=== PATIENT | female | born 2000 | race Two or more races ===

== ENCOUNTER 2021-09-30 11:13 | Emergency (ER) | payer OTHER ==
[2021-09-30 11:38] LABS: BASOPHILS % (AUTO) 0.5 %; EOSINOPHILS # (AUTO) 0.1 10^3/uL (0.0-0.7); EOSINOPHILS % (AUTO) 0.9 %; HCT - HEMATOCRIT 42.1 % (37.0-47.0); HGB - HEMOGLOBIN 13.4 g/dL (12.0-16.0); LYMPHOCYTES # (AUTO) 1.3 10^3/uL (1.5-3.5); LYMPHOCYTES % (AUTO) 20.5 %; MEAN CORPUSCULAR HEMOGLOBIN 27.9 pg (27.0-31.0); MEAN CORPUSCULAR HGB CONC 31.8 g/dL (32.0-36.0); MEAN CORPUSCULAR VOLUME 87.5 fL (81.0-99.0); MEAN PLATELET VOLUME 9.7 fL (7.9-10.8); MONOCYTES # (AUTO) 0.4 10^3/uL (0.0-1.0); MONOCYTES % (AUTO) 6.8 %; NEUTROPHILS # (AUTO) 4.5 10^3/uL (1.5-6.6); PLT - PLATELET COUNT 247 10^3/uL (130-450); RED BLOOD COUNT 4.81 10^6/uL (4.20-5.40); RED CELL DISTRIBUTION WIDTH 13.1 % (12.0-15.0); WHITE BLOOD COUNT 6.4 x10^3/uL (4.8-10.8)
[2021-09-30 11:53] LABS: ALBUMIN 4.1 g/dL (3.2-5.5); ALBUMIN/GLOBULIN RATIO 1.1 (1.0-2.2); BILIRUBIN,TOTAL 0.7 mg/dL (0.2-1.0); CALCIUM 9.1 mg/dL (8.5-10.3); CREATININE 0.8 mg/dL (0.4-1.0); POTASSIUM 3.8 mmol/L (3.5-5.0); TOTAL PROTEIN 7.7 g/dL (6.7-8.2)
[2021-09-30 13:53] LABS: BILIRUBIN,URINE NEGATIVE (NEGATIVE); GLUCOSE, URINE (UA) NEGATIVE (NEGATIVE); KETONES,URINE (UA) NEGATIVE (NEGATIVE); LEUKOCYTE ESTERASE, URINE NEGATIVE (NEGATIVE); NITRITE,URINE NEGATIVE (NEGATIVE); OCCULT BLOOD,URINE MODERATE (NEGATIVE); PH,URINE 5.5 PH (5.0-7.5); PROTEIN,URINE NEGATIVE (NEGATIVE); UROBILINOGEN,URINE 0.2 (NORMAL) E.U./dL (NORMAL)
[2021-09-30 13:58] LABS: CLARITY,URINE HAZY (CLEAR); HCG UR QUAL NEGATIVE
[2021-09-30 14:14] VITALS: BP 127/77
[2021-09-30 14:15] LABS: BACTERIA,URINE Few /HPF (None Seen); RBC,URINE 0-5 /HPF (0-5); SQUAMOUS EPITHELIAL CELL,UR MANY Squamous (<= Few); WBC,URINE 0-3 /HPF (0-5)
--- NOTE | 2021-09-30 14:44 | ED Physician Documentation ---
History of Present Illness - Stated complaint Stated Complaint: FEMALE - Chief complaint Chief Complaint: Abd Pain - Additonal information Additional information: 21-year-old female presents emergency department for evaluation of heavy men strual flow. Reports that her menstrual cycle began about 36 hours ago. She reports her periods typically last for about 1 week and are very heavy the first 2 days before gently receiving. She found that this flow was particularly heavy. She woke up this morning and had blood through her tampon and pad which is unusual. She does have cramping but states that it is getting better. She has never had evaluation through OB for her dysmenorrhagia. Denies chest pain or shortness of air. No syncope. No fevers dysuria urgency or frequency. Review of Systems Constitutional: reports: Reviewed and negative Eyes: reports: Reviewed and negative Ears: reports: Reviewed and negative Throat: reports: Reviewed and negative Cardiac: reports: Reviewed and negative GI: reports: Abdominal Pain. denies: Vomiting : reports: Vaginal bleeding Skin: reports: Reviewed and negative Musculoskeletal: reports: Reviewed and negative PD PAST MEDICAL HISTORY - Past Medical History Past Medical History: No - Present Medications Home Medications: Ambulatory Orders Medication Instructions Recorded Confirmed No Known Home Medications 09/30/21 09/30/21 - Allergies Allergies/Adverse Reactions: Allergies Allergy/AdvReac Type Severity Reaction Status Date / Time No Known Drug Allergies Allergy Verified 09/30/21 11:21 - Social History Does the pt smoke?: No Smoking Status: Never smoker PD ED PE NORMAL - General General: Alert and oriented X 3, No acute distress - HEENT HEENT: PERRL - Neck Neck: Supple, no meningeal sign - Cardiac Cardiac: RRR, No murmur - Respiratory Respiratory: Clear bilaterally - Abdomen Abdomen: Normal bowel sounds, Soft, Non tender, Non distended - Rectal Rectal: Deferred - Back Back: No CVA TTP, No spinal TTP - Derm Derm: Normal color Results - Vitals Vitals: Vital Signs - 24 hr 09/30/21 09/30/21 11:18 14:12 Temperature 36.4 C L 36.6 C Heart Rate 97 78 Respiratory 16 16 Rate Blood Pressure 134/87 H 127/77 O2 Saturation 99 100 Oxygen O2 Source Room air - Labs Labs: Laboratory Tests 09/30/21 09/30/21 09/30/21 11:32 11:32 13:30 WBC 6.4 RBC 4.81 Hgb 13.4 Hct 42.1 MCV 87.5 MCH 27.9 MCHC 31.8 L RDW 13.1 Plt Count 247 MPV 9.7 Neut # (Auto) 4.5 Lymph # (Auto) 1.3 L Harrison # (Auto) 0.4 Eos # (Auto) 0.1 Baso # (Auto) 0.0 Absolute Nucleated RBC 0.00 Nucleated RBC % 0.0 Sodium 139 Potassium 3.8 Chloride 106 Carbon Dioxide 25 Anion Gap 8.0 BUN 9 Creatinine 0.8 Estimated GFR (MDRD) 91 Glucose 79 Calcium 9.1 Total Bilirubin 0.7 AST 15 ALT 14 Alkaline Phosphatase 65 Total Protein 7.7 Albumin 4.1 Globulin 3.6 Albumin/Globulin Ratio 1.1 Lipase 37 Urine Color LIGHT YELLOW Urine Clarity HAZY Urine pH 5.5 Ur Specific [place] 1.015 Urine Protein NEGATIVE Urine Glucose (UA) NEGATIVE Urine Ketones NEGATIVE Urine Occult Blood MODERATE H Urine Nitrite NEGATIVE Urine Bilirubin NEGATIVE Urine Urobilinogen 0.2 (NORMAL) Ur Leukocyte Esterase NEGATIVE Urine RBC 0-5 Urine WBC 0-3 Ur Squamous Epith Cells MANY Squamous H Urine Bacteria Few Ur Microscopic Review INDICATED Urine Culture Comments NOT INDICATED Urine HCG, Qual NEGATIVE PD MEDICAL DECISION MAKING - ED course Complexity details: reviewed results, d/w patient ED course: 21-year-old female presents emergency department for evaluation of heavy menstrual flow. She does self report to the provider that her Corman asked her to come to the ER. However since her period started 36 hours ago the flow has begun to lessen. She has had no fevers. No abdominal pain was elicited. Screening labs today do not show any acute worrisome abnormalities and certainly no anemia seen. I did offer the patient the option of a pelvic ultrasound to evaluate for causes of heavy flow such as fibroids but she declined that at this time. She reports that she will follow up with [facility] for further evaluation. Emergent return precautions were discussed for failure of bleeding to improve, any fainting episodes chest pain or shortness of air. Departure - Departure Disposition: 01 Home, Self Care Clinical Impression: Menorrhagia Qualifiers: Menorrhagia type: with regular cycle Qualified Code(s): N92.0 - Excessive and frequent menstruation with regular cycle Condition: Stable Record reviewed to determine appropriate education?: Yes Instructions: ED Bleeding Menstrual Heavy Comments: You were seen in the emergency department today for concerns of heavy menstrual flow. As we discussed at the bedside your screening labs are essentially normal. Your vital signs are normal. You were offered the option of a pelvic ultrasound to evaluate for causes of heavy menstrual flow such as uterine fibroids but you have declined that at this time. I do recommend very close follow-up with [facility]. You may benefit from the initiation of oral contraceptives which can help regulate flow and reduce discomfort with periods. Return to the emergency department if you are developing any fevers, have suddenly severe or different abdominal pain. Your menstrual cycle does not and is you would expect it or you have any fainting episodes.
== END 2021-09-30 14:56 | disposition home or self-care (01) ==
LOC: ED 11:13
DX: N92.0 Excessive and frequent menstruation with regular cycle (principal)
CPT/HCPCS: 36415; 80053; 81001; 81003; 81025; 83690; 85025; 87086; 99281; 99283

== ENCOUNTER 2023-08-12 08:34 | Emergency (ER) | payer OTHER ==
[2023-08-12 09:14] LABS: BILIRUBIN,URINE NEGATIVE (NEGATIVE); GLUCOSE, URINE (UA) NEGATIVE (NEGATIVE); KETONES,URINE (UA) NEGATIVE (NEGATIVE); LEUKOCYTE ESTERASE, URINE NEGATIVE (NEGATIVE); NITRITE,URINE NEGATIVE (NEGATIVE); OCCULT BLOOD,URINE LARGE (NEGATIVE); PH,URINE 5.5 PH (5.0-7.5); PROTEIN,URINE 30 mg/dL (NEGATIVE); UROBILINOGEN,URINE 0.2 (NORMAL) E.U./dL (NORMAL)
[2023-08-12 09:15] LABS: BACTERIA,URINE Few /HPF (None Seen); CLARITY,URINE BLOODY (CLEAR); HCG UR QUAL NEGATIVE; RBC,URINE TNTC /HPF (0-5); SQUAMOUS EPITHELIAL CELL,UR MOD Squamous (<= Few)
[2023-08-12 10:12] LABS: BASOPHILS % (AUTO) 0.3 %; EOSINOPHILS # (AUTO) 0.1 10^3/uL (0.0-0.7); EOSINOPHILS % (AUTO) 0.7 %; HCT - HEMATOCRIT 39.2 % (37.0-47.0); LYMPHOCYTES # (AUTO) 1.5 10^3/uL (1.5-3.5); LYMPHOCYTES % (AUTO) 21.9 %; MEAN CORPUSCULAR HEMOGLOBIN 28.3 pg (27.0-31.0); MEAN CORPUSCULAR HGB CONC 33.2 g/dL (32.0-36.0); MEAN CORPUSCULAR VOLUME 85.2 fL (81.0-99.0); MONOCYTES # (AUTO) 0.5 10^3/uL (0.0-1.0); MONOCYTES % (AUTO) 6.9 %; NEUTROPHILS # (AUTO) 4.7 10^3/uL (1.5-6.6); NEUTROPHILS % (AUTO) 70.1 %; PLT - PLATELET COUNT 242 10^3/uL (130-450); RED CELL DISTRIBUTION WIDTH 12.6 % (12.0-15.0); WHITE BLOOD COUNT 6.7 x10^3/uL (4.8-10.8)
[2023-08-12 10:19] LABS: ALBUMIN 4.3 g/dL (3.2-5.5); ALBUMIN/GLOBULIN RATIO 1.5 (1.0-2.2); BILIRUBIN,TOTAL 0.4 mg/dL (0.2-1.0); CALCIUM 9.2 mg/dL (8.5-10.3); CREATININE 0.8 mg/dL (0.6-1.3); POTASSIUM 3.9 mmol/L (3.5-4.5); TOTAL PROTEIN 7.2 g/dL (6.4-8.9)
[2023-08-12] MEDS ORDERED: ONDANSETRON 4 MG/2 ML VIAL IVP STA (10:27)
[2023-08-12] MEDS ORDERED: HYDROmorphone 1 MG/ML CARPUJECT IVP STA (10:27)
[2023-08-12] MEDS ORDERED: KETOROLAC 15 MG/ML VIAL IVP STA (10:27)
--- NOTE | 2023-08-12 10:28 | ED Physician Documentation ---
PD HPI NVD - Stated complaint Stated Complaint: ,CRAMP PX - Chief complaint Chief Complaint: Abd Pain - History obtained from History obtained from: Patient - Additonal information Additional information: 23-year-old woman presents for very painful menstrual cramps. She started her menses which is at the normal time and the flow is just a bit heavier than usual. That said the pelvic pain is much more than usual. There is no radiation to it. She is she has vomiting and diarrhea as well. She always has diarrhea with her menses, so that is not unusual for her and she thinks the vomiting is from pain. She tried to take Midol but could not keep it down. Denies fevers. She is sexually active. PD PAST MEDICAL HISTORY - Present Medications Home Medications: Ambulatory Orders Medication Instructions Recorded Confirmed No Known Home Medications 09/30/21 08/12/23 - Allergies Allergies/Adverse Reactions: Allergies Allergy/AdvReac Type Severity Reaction Status Date / Time No Known Drug Allergies Allergy Verified 08/12/23 08:46 - Social History Does the pt smoke?: No Smoking Status: Never smoker PD ED PE NORMAL - Vitals Vital signs reviewed: Yes - General General: Alert and oriented X 3, Other (She appears uncomfortable.) - Abdomen Abdomen: Soft, Non tender - Neuro Neuro: Alert and oriented X 3 Results - Vitals Vitals: Vital Signs - 24 hr 08/12/23 08/12/23 08:42 10:47 Temperature 35.4 C L Heart Rate 83 62 Respiratory 18 20 Rate Blood Pressure 136/102 H 127/85 H O2 Saturation 98 96 Oxygen O2 Source Room air - Labs Labs: Laboratory Tests 08/12/23 08/12/23 08/12/23 09:01 10:01 10:01 WBC 6.7 RBC 4.60 Hgb 13.0 Hct 39.2 MCV 85.2 MCH 28.3 MCHC 33.2 RDW 12.6 Plt Count 242 MPV 10.0 Neut # (Auto) 4.7 Lymph # (Auto) 1.5 [place] # (Auto) 0.5 Eos # (Auto) 0.1 Baso # (Auto) 0.0 Absolute Nucleated RBC 0.00 Nucleated RBC % 0.0 Sodium 139 Potassium 3.9 Chloride 109 Carbon Dioxide 25 Anion Gap 5.0 L BUN 10 Creatinine 0.8 Estimated GFR (MDRD) 89 Glucose 104 Calcium 9.2 Total Bilirubin 0.4 AST 16 ALT 12 Alkaline Phosphatase 67 Total Protein 7.2 Albumin 4.3 Globulin 2.9 Albumin/Globulin Ratio 1.5 Lipase 13 Urine Color RED/BLOODY Urine Clarity BLOODY Urine pH 5.5 Ur Specific [place] >=1.030 H Urine Protein 30 H Urine Glucose (UA) NEGATIVE Urine Ketones NEGATIVE Urine Occult Blood LARGE H Urine Nitrite NEGATIVE Urine Bilirubin NEGATIVE Urine Urobilinogen 0.2 (NORMAL) Ur Leukocyte Esterase NEGATIVE Urine RBC TNTC H Urine WBC 6-10 H Ur Squamous Epith Cells MOD Squamous H Urine Bacteria Few Ur Microscopic Review INDICATED Urine Culture Comments NOT INDICATED Urine HCG, Qual NEGATIVE PD Medical Decision Making - ED course ED course: 23-year-old woman with severe pelvic cramps with menstruation. She is not and CBC, CMP are normal. It would be atypical for ovarian cyst/torsion, given the timing and her cycle but will obtain ultrasound. After administration of 1 mg IV Dilaudid, 15 mg IV Toradol, and 4 mg of IV Zofran at 10:55 AM she was reevaluated and feeling much better. Signout to emergency physician at 11 AM to follow-up on ultrasound. Departure - Departure Clinical Impression: Pelvic pain in female Instructions: ED Pelvic Pain [facility] Forms: PCP List
[2023-08-12] MEDS ORDERED: oxyCODONE 5 MG TABLET PO STA (15:06)
--- NOTE | 2023-08-12 15:08 | ED Physician Documentation ---
ED Addendum - Addendum Addendum: 08/12/23 15:06 Patient's ultrasound does show a 2 cm right-sided hydrosalpinx, ovaries are otherwise normal. Patient denies any changes in sexual partners. No vaginal discharge, itching or burning. I discussed the case with Dr. Huitron, gynecology medical practitioners. The patient has no history of PID, gonorrhea or chlamydia. She recommends treating for possible endometritis as this can cause painful menses. The patient is agreeable to this plan. She will follow-up closely with the gynecology clinic. Patient is well-appearing, nontoxic. Afebrile. Patient counseled regarding signs and symptoms for which I believe and urgent re- evaluation would be necessary. Patient with good understanding of and agreement to plan and is comfortable going home at this time This document was made in part using voice recognition software. While efforts are made to proofread this document, sound alike and grammatical errors may occur. Departure - Departure Disposition: 01 Home, Self Care Clinical Impression: Pelvic pain in female, Dysmenorrhea, Endometritis Condition: Good Instructions: ED Cramping Menstrual, ED Endometritis Non Obstetric Follow-Up: Osbaldo Huitron MD [Provider Admit Priv/Credential] - [facility] [Provider Group] Prescriptions: Doxycycline Monohydrate 100 mg PO BID #28 cap metroNIDAZOLE [Flagyl] 500 mg PO BID #28 tablet Oxycodone HCl/Acetaminophen [Percocet 5-325 mg Tablet] 1 - 2 each PO Q6H PRN #14 tablet MDD 6 tabs PRN Reason: pain Comments: Your prescriptions were sent to [facility] in [place]. It is recommended that you follow-up with gynecology for further care, I did speak with Dr. Tomy hooper. She has recommended that we try treating you with doxycycline and Flagyl for possible uterine infection called endometritis. She will follow-up with you in clinic. Please return if you worsen. I am prescribing a short course of narcotic pain medication for you. These are potentially dangerous and addictive medications that should be used carefully. These medications may constipate you. Take an hiso-onx-porwlka stool softener (docusate) twice daily with plenty of water while taking these medications. If you go 24 hours without a bowel movement, take [id number] miralax, per package instructions. Do not drink or drive while taking these medications. If you received narcotic or sedating medications while in the emergency department, do not drive for 24 hours. Store this medication in a safe, secure place and out of reach of children. It is a violation of federal law to give or sell this medication to another person or to use in a manner other than prescribed. The ED will not refill narcotic prescriptions, including prescriptions lost or stolen. To dispose of unwanted medications: 1. [facility] at [address] [facility] in [place] has a medication drop box. They accept prescription medications (in pill form) Sunday through Sunday 9:00 a.m. to 5:00 p.m. 2. The [facility] [employer] accepts prescription medications (in pill form only) for disposal year round. Call for more information. 3. Contact the [facility] for the next [facility] sponsored prescription drug collection event. , [phone], or [phone]; Forms: PCP List
[2023-08-12 15:41] VITALS: BP 132/80; O2SAT 99
[2023-08-12 17:42] LABS: CHLAMYDIA TRACHOMATIS DNA NEGATIVE (NEGATIVE); NEISSERIA GONORRHOEAE DNA NEGATIVE (NEGATIVE)
[2023-08-12 17:45] LABS: TRICHOMONAS VAGINALIS DNA NEGATIVE (NEGATIVE)
--- NOTE | 2023-08-12 23:13 | Ultrasound Report ---
PROCEDURE: Pelvic w/Transvag+Doppler Comp INDICATIONS: Pelvic pain TECHNIQUE: Real-time scanning was performed of the pelvic organs, with image documentation. Additional endovagi nal scanning was necessary due to incomplete visualization of the adnexal and endometrial structures by transabdominal scanning. Doppler interrogation was performed of the ovaries bilaterally. COMPARISON: None. FINDINGS: Uterus: Uterus is anteverted and measures 7.3 x 4.6 x 4.9 cm. Endometrium measures up to 0.7 cm. Ovaries: The right ovary measures 2.6 x 1.8 x 1.6 cm, with a calculated ovarian volume of 3.9 cc. T he left ovary measures 3.1 x 1.8 x 1.5 cm, with a calculated ovarian volume of 4.2 cc. There is paten t arterial and venous flow demonstrated within the ovaries. No adnexal masses. There is a tubular ane choic structure in the right adnexa compatible with a dilated fallopian tube measuring up to 2.0 cm i n diameter. Other: No pathologic free abdominal or pelvic fluid. IMPRESSION: 1. Nonspecific right hydrosalpinx demonstrated. Findings reported to Dr. Bansal by the medical laboratory technologist at the conclusion of the study on 08/12. Reviewed by: Cade Manrique MD on 08/12/2023 11:12 PM PDT Approved by: Cade Manrique MD on 08/12/2023 11:12 PM PDT Station ID: [id number]
== END 2023-08-12 15:33 | disposition home or self-care (01) ==
LOC: ED 08:34
DX: R10.2 Pelvic and perineal pain (principal)
CPT/HCPCS: 36415; 76830; 76856; 80053; 81001; 81025; 83690; 85025; 87491; 87591; 87661; 93975; 96374; 99284; A9270; J1170; 81003; 87086